=== PATIENT | male | born 1935 | race Two or more races ===

== ENCOUNTER 2017-05-24 18:25 | Emergency (ER) | payer MEDICARE, OTHER ==
[~2017-05-24] VITALS: Ht 172.7 cm; Wt 72.6 kg
[2017-05-24 18:40] VITALS: BP 149/83
[2017-05-24] MEDS ORDERED: METFORMIN HCL500 M1 ORAL (18:42)
[2017-05-24] MEDS ORDERED: ACETAMINOPHEN-1 EAC2 ORAL (18:42)
[2017-05-24] MEDS ORDERED: Norco 7.5mg/325mg tab ORAL ONE (19:00)
--- NOTE | 2017-05-24 19:51 | Emergency Room Report ---
History of Present Illness General Chief Complaint: Upper Extremity Injury Source: Patient Present Illness HPI 81-year-old male presents to the emergency department complaining of progressive right shoulder pain x1 week. Patient reports several traumas when he fell and tried to brace himself. 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 Patient denies erythema, open wounds, bruising. Patient states he is always had pain in the joint however he has noticed a significant increase in his pain. Patient reports pain is exacerbated upon attempts to raise his arm above the 90 angle. Patient denies swelling. Patient denies hitting his head or loss of consciousness. He should states he is usually prescribed Tylenol #4 which is not provided any relief. Denies numbness tingling or loss of sensation or gross motor movements of the extremities, incontinence of bowel or bladder. Denies CP, Palpitations, LOC, AMS , dizziness, Changes in Vision, Sensation, paresthesias, or a sudden severe headache. Allergies: Coded Allergies: No Known Allergies (Unverified , 05/24/17) Patient History Past Medical History: see triage record Past Surgical History: none Pertinent Family History: none Reviewed Nursing Documentation: PMH: Agreed, PSxH: Agreed Nursing Documentation-PMH Hx Diabetes: Yes Review of Systems All Other Systems: negative except mentioned in HPI Physical Exam Vital Signs Date Time Temp Pulse Resp B/P (MAP) Pulse Ox O2 Delivery O2 Flow Rate FiO2 05/24/17 18:30 98.1 100 19 149/83 8 Room Air Sp02 EP Interpretation: reviewed, normal General Appearance: no apparent distress, alert, GCS 15, non-toxic Head: normocephalic, atraumatic Eyes: bilateral eye normal inspection, bilateral eye PERRL ENT: hearing grossly normal, normal voice Neck: full range of motion Respiratory: chest non-tender, lungs clear, normal breath sounds, speaking full sentences Cardiovascular #1: regular rate, rhythm, normal capillary refill Cardiovascular #2: 2+ radial (R), 2+ radial (L) Musculoskeletal: back normal, gait/station normal, tender - ttp to the anterior , and lateral right shoulder, no obvious deformity, limited ROM due to pain, slight clicking palpated. pt. 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 Psychiatric: judgement/insight normal, memory normal, mood/affect normal Skin: normal color, no rash, warm/dry, well hydrated Lymphatic: no adenopathy Medical Decision Making PA Attestation Dr. Cha is my supervising Physician whom patient management has been discussed with. Diagnostic Impression: Primary Impression: Shoulder joint painful on movement Qualified Codes: M25.511 - Pain in right shoulder ER Course 81-year-old male presents to the emergency department complaining of progressive right shoulder pain x1 week. Patient reports several traumas when he fell and tried to brace himself. 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 Patient denies erythema, open wounds, bruising. Patient states he is always had pain in the joint however he has noticed a significant increase in his pain. Patient reports pain is exacerbated upon attempts to raise his arm above the 90 angle. Patient denies swelling. Patient denies hitting his head or loss of consciousness. He should states he is usually prescribed Tylenol #4 which is not provided any relief. Denies numbness tingling or loss of sensation or gross motor movements of the extremities, incontinence of bowel or bladder. Denies CP, Palpitations, LOC, AMS , dizziness, Changes in Vision, Sensation, paresthesias, or a sudden severe headache. Ddx considered but are not limited to Fracture, dislocation, contusion, Sprain/ Strain/Spasm,. Vital signs: are WNL, pt. is afebrile H&PE are most consistent with musculoskeletal injury will perform imaging to r/ o fractures/dislocations. ORDERS: - X-ray Right Shoulder 3 views - negative for fx, Dislocation, or significant soft tissue injury- previous prosthesis noted- per official radiology report. ED INTERVENTIONS: - Brogan PO d/w pt. conservative treatment, and to follow up with a primary care provider. pt given a list of primary care clinics for follow up. d/w pt. to return to the ED with worsening or new symptoms. MRI may be required if symptoms persist. DISCHARGE: At this time pt. is stable for d/c to home. Will provide printed patient care instructions, and any necessary prescriptions. Care plan and follow up instructions have been discussed with the patient prior to discharge. Other X-Ray Diagnostic Results Other X-Ray Diagnostic Results : X-Ray ordered: Right Shoulder # of Views/Limited Vs Complete: 3 View Indication: Pain EP Interpretation: Yes URSULA Xray: Interpretation reviewed, by supervising MD, and agrees with findings. Interpretation: no dislocation, no soft tissue swelling, no fractures, other - moderate degenerative changes, shoulder hardware noted and appears to be in place. Impression: No acute disease Electronically Signed by: Sonya Briggs PA-C Last Vital Signs Date Time Temp Pulse Resp B/P (MAP) Pulse Ox O2 Delivery O2 Flow Rate FiO2 05/24/17 18:40 98.1 19 149/83 8 Room Air 05/24/17 18:30 100 Disposition: HOME, SELF-CARE Condition: Stable Scripts Docusate Sodium* (COLACE*) 100 Mg Capsule 100 MG ORAL THREE TIMES A DAY, #30 CAP Prov: Sonya Briggs 05/24/17 Lidocaine (Lidoderm) 1 Each Adh..patch 1 PATCH TOPIC Q12HR, #20 PATCH 0 Refills Patch(es) may remain in place for up to 12 hours in any 24-hour period. Prov: Sonya Briggs 05/24/17 Hydrocodone Bit/Acetaminophen 5-325* (NORCO 5-325*) 1 Each Tablet 1 TAB ORAL Q6H Y for For Pain, #10 TAB 0 Refills Prov: Sonya Briggs 05/24/17 Referrals: NOT CHOSEN IPA/,REFERRING (PCP) Patient Instructions: Shoulder Pain Additional Instructions: Take medications as directed. Follow up with a Primary Care Provider or [employer] MA[employer]GER in 3-5 days , even if your symptoms have resolved. --May require MRI if symptoms do not improve. Return sooner to ED if new symptoms occur, or current symptoms become worse. Do not drink alcohol, drive, or operate heavy machinery while taking pain medication as this may cause drowsiness. - Please note that this Emergency Department Report was dictated using [employer] technology software, occasionally this can lead to erroneous entry secondary to interpretation by the dictation equipment. Sonya Briggs May 24, 2017 19:51
[2017-05-24] MEDS ORDERED: LIDODERM700 M1 TOPIC (19:58)
[2017-05-24] MEDS ORDERED: NORCO 5-325 TA1 EACH ORAL (19:58)
[2017-05-24] MEDS ORDERED: COLACE100 MG ORAL (19:58)
[2017-05-24 20:07] VITALS: BP 136/86
--- NOTE | 2017-05-25 11:12 | Diagnostic Imaging Report ---
Indication: Pain Findings: 3 views of the right shoulder were obtained. There is a right shoulder prosthesis present. There is no obvious fracture identified. The glenoid is obscured and not well evaluated. There is suggestion of osteophytes involving the glenoid rim as well as the a.c. joint. The bones are osteopenic. Impression: No obvious acute injury. Prosthesis noted.
== END 2017-05-24 20:09 | disposition home or self-care (01) ==
LOC: EMR 19:40
DX: M25.511 Pain in right shoulder (principal); E11.9 Type 2 diabetes mellitus without complications; M85.811 Other specified disorders of bone density and structure, right shoulder
CPT/HCPCS: 99284